=== PATIENT | female | born 1980 | race Caucasian/White ===

== ENCOUNTER → 2023-05-23 08:54 | Outpatient (REF) | payer BC, SELFPAY ==
[2023-05-23 12:46] LABS: ALT (SGPT) 16 U/L (0-35); AST (SGOT) 20 U/L (14-36); Albumin 4.3 g/dl (3.5-5.0); Alkaline Phosphatase 68 U/L (38-126); Blood Urea Nitrogen 18 mg/dl (7-17); Calcium 9.5 mg/dl (8.4-10.2); Carbon Dioxide 28 mmol/L (22-30); Chloride 99 mmol/L (98-107); Glucose 98 mg/dl (70-99); HDL Cholesterol 57 mg/dl; LDL Cholesterol, Calculated 134 mg/dl; Potassium 3.9 mmol/L (3.5-5.1); Sodium 136 mmol/L (135-145); Total Bilirubin 0.4 mg/dl (0.2-1.3); Total Cholesterol 218 mg/dl (50-199); Triglyceride 135 mg/dl (10-149); Very Low Density Lipoprotein 27 mg/dl (0-30); eGFR > 60.00
[2023-05-23 13:00] LABS: TSH Reflex To Free T4 3.33 uIU/ml (0.47-4.68)
[2023-05-23 14:30] LABS: Glycohemoglobin (HgbA1c) 6.2 % (4.0-5.6)
== END ==
LOC: HWLAB 08:54
PROVIDERS: ATTENDING PHYSICIAN Physician Assistant
DX: E11.9 Type 2 diabetes mellitus without complications (principal); E03.9 Hypothyroidism, unspecified; E78.2 Mixed hyperlipidemia
CPT/HCPCS: 36415; 80053; 80061; 83036; 84443

== ENCOUNTER → 2023-09-20 07:28 | Outpatient (REF) | payer BC, SELFPAY ==
[2023-09-20 10:15] LABS: ALT (SGPT) 15 U/L (0-35); AST (SGOT) 21 U/L (14-36); Alkaline Phosphatase 67 U/L (38-126); Blood Urea Nitrogen 12 mg/dl (7-17); Carbon Dioxide 28 mmol/L (22-30); Chloride 103 mmol/L (98-107); Glucose 96 mg/dl (70-99); HDL Cholesterol 54 mg/dl; LDL Cholesterol, Calculated 149 mg/dl; Potassium 4.1 mmol/L (3.5-5.1); Sodium 136 mmol/L (135-145); Total Bilirubin 0.5 mg/dl (0.2-1.3); Total Cholesterol 230 mg/dl (50-199); Total Protein 6.4 g/dl (6.3-8.2); Triglyceride 135 mg/dl (10-149); Very Low Density Lipoprotein 27 mg/dl (0-30); eGFR > 60.00
[2023-09-20 10:49] LABS: Glycohemoglobin (HgbA1c) 6.1 % (4.0-5.6)
[2023-09-20 11:19] LABS: Microalbumin, Random Urine 0.9 mg/dl (0.6-1.7)
[2023-09-20 11:23] LABS: Microalbumin/creatinine Ratio 8.1 mg/g
[2023-09-20 11:37] LABS: TSH Reflex To Free T4 4.48 uIU/ml (0.47-4.68)
== END ==
LOC: HWLAB 07:28
PROVIDERS: ATTENDING PHYSICIAN Physician Assistant
DX: E11.65 Type 2 diabetes mellitus with hyperglycemia (principal); E03.9 Hypothyroidism, unspecified; E78.2 Mixed hyperlipidemia
CPT/HCPCS: 36415; 80053; 80061; 82043; 82570; 83036; 84443

== ENCOUNTER → 2024-04-01 08:53 | Outpatient (REF) | payer BC, SELFPAY ==
[2024-04-01 12:45] LABS: ALT (SGPT) 15 U/L (0-35); AST (SGOT) 19 U/L (14-36); Alkaline Phosphatase 69 U/L (38-126); Blood Urea Nitrogen 13 mg/dl (7-17); Calcium 8.8 mg/dl (8.4-10.2); Carbon Dioxide 26 mmol/L (22-30); Chloride 100 mmol/L (98-107); Glucose 94 mg/dl (70-99); HDL Cholesterol 60 mg/dl; LDL Cholesterol, Calculated 140 mg/dl; Potassium 4.1 mmol/L (3.5-5.1); Sodium 135 mmol/L (135-145); Total Bilirubin 0.3 mg/dl (0.2-1.3); Total Cholesterol 223 mg/dl (50-199); Total Protein 6.6 g/dl (6.3-8.2); Triglyceride 115 mg/dl (10-149); Very Low Density Lipoprotein 23 mg/dl (0-30); eGFR > 60.00
[2024-04-01 13:13] LABS: TSH Reflex To Free T4 5.33 uIU/ml (0.47-4.68)
[2024-04-01 13:42] LABS: Free T4 0.99 ng/dl (0.78-2.19)
[2024-04-01 13:50] LABS: Microalbumin, Random Urine <0.6 mg/dl (0.6-1.7)
== END ==
LOC: HWLAB 08:53
PROVIDERS: ATTENDING PHYSICIAN Physician Assistant
DX: E11.65 Type 2 diabetes mellitus with hyperglycemia (principal); E03.9 Hypothyroidism, unspecified; E78.2 Mixed hyperlipidemia
CPT/HCPCS: 36415; 80053; 80061; 82043; 82570; 83036; 84439; 84443

== ENCOUNTER → 2024-10-09 09:17 | Outpatient (REF) | payer BC, SELFPAY ==
[2024-10-09 12:50] LABS: ALT (SGPT) 12 U/L (0-35); AST (SGOT) 17 U/L (14-36); Albumin 3.9 g/dl (3.5-5.0); Alkaline Phosphatase 51 U/L (38-126); Blood Urea Nitrogen 13 mg/dl (7-17); Calcium 8.8 mg/dl (8.4-10.2); Carbon Dioxide 27 mmol/L (22-30); Chloride 105 mmol/L (98-107); Glucose 93 mg/dl (70-99); HDL Cholesterol 59 mg/dl; LDL Cholesterol, Calculated 168 mg/dl; Potassium 4.4 mmol/L (3.5-5.1); Sodium 138 mmol/L (135-145); Total Protein 6.6 g/dl (6.3-8.2); Very Low Density Lipoprotein 15 mg/dl (0-30); eGFR > 60.00
[2024-10-09 13:02] LABS: Glycohemoglobin (HgbA1c) 6.0 % (4.0-5.6)
== END ==
LOC: HWLAB 09:17
PROVIDERS: ATTENDING PHYSICIAN Physician Assistant
DX: E03.9 Hypothyroidism, unspecified (principal); E78.2 Mixed hyperlipidemia; E11.65 Type 2 diabetes mellitus with hyperglycemia
CPT/HCPCS: 36415; 80053; 80061; 83036; 84443